=== PATIENT | female | born 1960 | race Caucasian/White ===

== ENCOUNTER 2018-05-30 10:14 | Day surgery (SDC) | payer OTHER, SELFPAY ==
--- NOTE | 2018-05-25 17:26 | PM.PREOP ---
Pre-operative Note Interval Note Pre-op Check: History & Physical Reviewed by Physician
[2018-05-30 10:59] VITALS: BMI 32.9
[2018-05-30] MEDS: PROPARACAINE 0.5% OPHTH SOL 2 DROPS EYE-OP (11:41)
[2018-05-30 11:45] VITALS: BP 123/77; PULSE 96; RESP 16; TEMP 36.3; O2SAT 100
[2018-05-30] MEDS: CATARACT EYE COMPOUND (10 DROPS/SYRINGE) 3 DROPS EYE-OP (12:03)
[2018-05-30] MEDS: LACTATED RINGERS 1,000 ML 42 ML IV (13:09)
[2018-05-30] MEDS: BALANCED SALT IRRIG SOLN NO.2 15 ML IRRIG.SOLN IRR (13:31)
[2018-05-30] MEDS: CARBACHOL 1.5 ML VIAL INJ (13:31)
[2018-05-30] MEDS: HYALURONATE SODIUM 10 MG/ML SYRINGE INJ (13:31)
[2018-05-30] MEDS: CHONDROIDTIN/SOD HYALURONATE 1.05 ML SYRINGE INTRAOCULA (13:31)
[2018-05-30] MEDS: MOXIFLOXACIN OPHTH DROPS 3 ML BOTTLE 2 DROPS INJ (13:32)
[2018-05-30] MEDS: OFLOXACIN 0.3% OPHTH 5 ML 2 DROPS EYE-LEFT (13:33)
[2018-05-30] MEDS: TRIAMCINOLONE 50 MG/5 ML VIAL INJ (13:34)
[2018-05-30] MEDS: PHENYLEPHRINE/LIDOCAINE 3ML VIAL (OR) EYE-OP (13:34)
[2018-05-30] MEDS: BALANCED SALT IRRIG SOLN NO.2 500 ML, EPINEPHrine 1 MG IRR (13:35)
[2018-05-30 14:17] VITALS: BP 130/81; PULSE 110; RESP 16; TEMP 36.1; O2SAT 98
[2018-05-30] MEDS: PILOCARPINE 2% OPHTH DROPS 15 ML 2 DROPS EYE-LEFT (14:19)
[2018-05-30 14:22] VITALS: BP 130/81; PULSE 106; RESP 16; O2SAT 100
[2018-05-30] MEDS: ACETYLCHOLINE 1:1000 OPHTH 2 ML 1 DROP INTRAOCULA (14:22)
[2018-05-30 14:27] VITALS: BP 122/76; PULSE 106; RESP 18; O2SAT 98
[2018-05-30 14:35] VITALS: BP 124/70; PULSE 103; RESP 18; TEMP 36.2; O2SAT 95
[2018-05-30] MEDS: acetaZOLAMIDE 250 MG TABLET 500 MG PO (14:42)
[2018-05-30 15:05] VITALS: BP 140/79; PULSE 93; RESP 16; TEMP 36.2; O2SAT 98
--- NOTE | 2018-05-30 21:10 | P.PCN_ITS ---
Procedures Date/Time Date of procedure: 05/30/18 Time of procedure: 13:01 General Procedure description: Date of service: May 30, 2018 Preoperative diagnoses: 1. Cortical cataract Cataract. 2. High myopia 3. Sleep apnea 4. Hypertension Postoperative diagnoses: 1. Cataract removal with phacoemulsification with ciliary sulcus intra-ocular lens implant. Procedure: Phacoemulsification with posterior chamber intraocular lens implant Surgeon: Ileana Barr MD Complications: Extension of anterior capsulorrhexis posterior without vitreous loss. Specimen: None Implant: [id number] +6.0 Blood loss: None Anesthesia: Retrobulbar with monitored standby Anesthesiologist: Beth Ndiaye M.D. Description of procedure: Patient is a 58 year old female with decreased vision due to cataract which is affecting activities of daily living. She wants surgery to improve vision. She is a chronic contact lens wearer and has irregular astigmatism. It is planned for her to wear correction after surgery and possibly need corneal surgery if still needs further correction.She is scheduled for a general anesthetic due to long axial length and her desire to avoid a topical anesthetic. She has taken to the operating room and given IV sedation after her non- functional IV was replaced on the fourth attempt due to valves in her veins. She was prepped Betadine solution, and draped in the usual sterile fashion. Temporal approach was made, a 1 mm side-port incision was made at the 12 oclock meridian. Phenylephrine 1.5% mixed with 1% xylocaine 0.2 cc was placed into the anterior chamber. Viscoat followed by Healandrez was then placed. A 2.6 mm clear incision with a 2.6 mm blade was placed at the 3 oclock meridian. A 360 degree capsulorrhexis style capsulotomy was then performed with a cystitome needle on a Healon. There was a tag temporally which appeared intack. Hydrodelineation and hydrodissection were performed without extension . The phacoemulsification unit is introduced, and sculpting notice used to groove the central lens. It is then removed in chopping mode. Epi nucleus is removed with epinuclear mode and irrigation aspiration was used to remove the peripheral cortex. It was then noted that the capsulorhexis had extended and there was defect in the posteior capsule without vitreous loss.Viscoat was immediately placed and no viterous presented. For safety and centration a sulcus intraocular lens was chosen with a myopic target and placed in an unfolder in a wound enlarge to 3.0 mm. The intraocular lens is placed in the sulcus with excellent centration. The pupil was constricted with Miochol and Miostat. constricted. The wound was stromally hydrated and tested for leaks, there was none and was left sutureless. Vigamox 0.1 cc was placed into the anterior chamber. Kenalog 0.2 cc was placed in the superior subconjunctival space. A drop of antibiotic and was placed and the eye was patched and shielded. The patient was stable and returned to the recovery room in excellent condition. Dictated by: Ileana Barr MD Copy to: [facility] Complications: other
== END 2018-05-30 15:15 | disposition home or self-care (01) ==
PROVIDERS: Visit Provider Ophthalmology
DX: H25.12 Age-related nuclear cataract, left eye (principal); I10 Essential (primary) hypertension
CPT/HCPCS: J0171; J1100; J2250; J2405; J2704; J3010; J3301

== ENCOUNTER 2018-08-29 06:50 | Day surgery (SDC) | payer OTHER, SELFPAY ==
[2018-08-29] MEDS: PROPARACAINE 0.5% OPHTH SOL 2 DROPS EYE-OP ×2 (07:14→08:05)
[2018-08-29] MEDS: CATARACT EYE COMPOUND (10 DROPS/SYRINGE) 3 DROPS EYE-OP (07:19)
[2018-08-29 07:23] VITALS: BP 122/76; PULSE 104; RESP 16; TEMP 36.5; O2SAT 95; BMI 32.9
--- NOTE | 2018-08-29 07:27 | PM.PREOP ---
Pre-operative Note Interval Note Pre-op Check: Yes History & Physical Reviewed by Physician Changes: No
[2018-08-29] MEDS: LACTATED RINGERS 1,000 ML 42 ML IV (07:30)
--- NOTE | 2018-08-29 07:55 | SUR.OPER ---
Supine on eye stretcher, head on extension cradle secured with tape. Arms tucked at sides with blanket. Pillow under knees.
[2018-08-29] MEDS: BALANCED SALT IRRIG SOLN NO.2 500 ML, EPINEPHrine 1 MG IRR (07:59)
[2018-08-29] MEDS: PHENYLEPHRINE/LIDOCAINE VIAL (OR) 0.2 ML EYE-OP (08:01)
[2018-08-29] MEDS: MOXIFLOXACIN OPHTH DROPS 3 ML BOTTLE 2 DROPS INJ (08:02)
[2018-08-29] MEDS: TRIAMCINOLONE 50 MG/5 ML VIAL INJ (08:02)
[2018-08-29] MEDS: CHONDROIDTIN/SOD HYALURONATE 1.05 ML SYRINGE INTRAOCULA (08:02)
[2018-08-29] MEDS: CARBACHOL 1.5 ML VIAL INJ (08:03)
[2018-08-29] MEDS: BALANCED SALT IRRIG SOLN NO.2 15 ML IRRIG.SOLN IRR (08:03)
[2018-08-29] MEDS: NEOMYCIN/POLY/DEX OPHTH OINT 1 APPLIC EYE-RIGHT (08:04)
[2018-08-29] MEDS: OFLOXACIN 0.3% OPHTH 5 ML 2 DROPS EYE-RIGHT (08:05)
[2018-08-29] MEDS: LIDOCAINE 2% 4 ML, BUPIVACAINE 0.5% (PF) 4 ML, HYALURONIDASE 150 UNIT INJ (08:06)
[2018-08-29] MEDS: HYALURONATE SODIUM 10 MG/ML SYRINGE INJ (08:09)
[2018-08-29 08:38] VITALS: BP 110/70; PULSE 115; RESP 14; TEMP 36.3; O2SAT 97
[2018-08-29 08:43] VITALS: BP 111/69; PULSE 114; RESP 15; TEMP 36.3; O2SAT 98
--- NOTE | 2018-08-29 08:45 | PM.OP.1 ---
Operative Date/Time/Diagnoses Date of procedure: 08/29/18 Time of procedure: 07:45 Procedure & Clinicians Procedure: Date of service: August 29, 2008 Preoperative diagnoses: 1. Right nuclear sclerotic and cortical cataract. 2.High axial length Postoperative diagnoses: 1. Cataract removed with phaoemulsification and posterior chamber IOL. Procedure: Phacoemulsification with posterior chamber intraocular lens implant Surgeon: Ileana Barr MD Complications:none Specimen: None Implant:[id number]+5.00 Blood loss: None Anesthesia: General withlaryngeal mask airway Anesthesiologist: Jonathan Ramachandran Description of procedure: Patient is a female year old with decreased vision due to cataract which is affecting activities of daily living. She wants surgery to improve vision. She has a long axial length and a general anesthetic is preferred by her. She tolerated this well last surgery. She was taken to the operating room and given IV sedation. A laryngeal mask airway is placed. The eye is manually massaged for 30 sec, prepped using Betadine solution, and draped in the usual sterile fashion. Temporal approach was made, a 1 mm side-port incision was made at the 7:30 position. Phenylephrine 1.5% mixed with 1% xylocaine 0.2 cc was placed into the anterior chamber. Viscoat followed by Healon was then placed. A 2.6 mm clear incision with a 2.6 mm blade was placed at the 170 degree meridian. A 360 degree capsulorrhexis style capsulotomy was then performed with a cystitome needle on a Healon. Hydrodelineation and hydrodissection were performed. The phacoemulsification unit is introduced, and sculpting notice used to groove the central lens. It is then removed in chopping mode. Epi nucleus is removed with epinuclear mode and irrigation aspiration was used to remove the peripheral cortex. The posterior capsule is polished. The intraocular lens is selected, inspected, power confirmed, and placed in the posterior chamber. The pupil was constricted. The wound was stromally hydrated and tested for leaks, there was none and it was left sutureless. Vigamox 0.1 cc was placed into the anterior chamber. Kenalog 0.2 cc was placed in the superior subconjunctival space. A drop of antibiotic and was placed and the eye was patched and shielded. The patient was stable and returned to the recovery room in excellent condition. Dictated by: Ileana Barr MD Copy to: [facility] Same procedure as scheduled: Yes
[2018-08-29 08:48] VITALS: BP 111/69; PULSE 111; RESP 17; TEMP 36.8; O2SAT 99
[2018-08-29 08:56] VITALS: BP 114/72; PULSE 117; RESP 18; TEMP 36.6; O2SAT 96
== END 2018-08-29 09:00 | disposition home or self-care (01) ==
PROVIDERS: Visit Provider Ophthalmology
DX: H25.11 Age-related nuclear cataract, right eye (principal); H26.9 Unspecified cataract
CPT/HCPCS: J0171; J1100; J2405; J2704; J3010; J3301; J3470